=== PATIENT | female | born 1965 | race Two or more races ===

== ENCOUNTER 2020-02-23 06:42 | Outpatient (CLI) | payer OTHER | END 2020-02-23 23:59 | disposition home or self-care (01) | LOC: LAB 06:42 | PROVIDERS: ATTEND Specialist | DX: Z01.812 Encounter for preprocedural laboratory examination (principal); Z11.59 Encounter for screening for other viral diseases | CPT/HCPCS: C9803; U0003 ==

== ENCOUNTER 2020-02-28 05:08 | Inpatient (IN) | payer OTHER ==
[~2020-02-28] VITALS: Ht 152.4 cm; Wt 68.9 kg
[2020-02-28] VITALS (9 sets, daily range): BP systolic 121–159; BP diastolic 55–77
--- NOTE | 2020-02-28 05:22 | NUR ---
MS RN NOTES PATIENT ARRIVED ON FLOOR AT 0520. PATIENT IS ALERT AND ORIENTED X 4. BREATHING EVEN AND UNLABORED ON ROOM AIR. SHOWS NO SIGNS OF ACUTE RESPIRATORY DISTRESS, NO ACUTE PAIN. IV ON RAC 18G ITS CLEAN DRY AND INTACT. SHOWS NO SIGNS OF INFILTRATION, NO REDNESS. SURGERY CONSENT COMPLETED, BELONGINGS CHECKLIST COMPLETED. SAFETY PRECAUTIONS IN PLACE. BED IN LOWEST POSITION, LOCKED, AND CALL LIGHT KEPT WITHIN REACH. WILL CONTINUE TO MONITOR.
--- NOTE | 2020-02-28 05:44 | NUR ---
MS RN NOTES PATIENT PICKED UP FOR SURGERY. LEFT FLOOR AT 0545. WILL ENDORSE TO ONCOMING NURSE.
[2020-02-28] MEDS ORDERED: ANESTHESIA TRAY IN PYXIS 1 EA TRAY MC ONE (05:55)
[2020-02-28] MEDS ORDERED: BUPIVACAINE MPF 0.5% W/EPI INJ 30 ML VIAL ONE (05:55)
[2020-02-28] MEDS ORDERED: BACITRACIN 50000 UNITS/VIAL ONE (05:55)
[2020-02-28 06:01] LABS: BASOPHILS % (AUTO) 0.4 % (0.0-2.0); EOSINOPHILS % (AUTO) 3.2 % (0.0-6.0); HEMATOCRIT 40 % (33-45); LYMPHOCYTES # (AUTO) 1.5 /CMM (0.8-4.8); LYMPHOCYTES % (AUTO) 32.7 % (20.0-44.0); MEAN CORPUSCULAR HGB CONC 32 g/dl (31.0-36.0); MEAN CORPUSCULAR VOLUME 82 fL (82-100); MONOCYTES # (AUTO) 0.4 /CMM (0.1-1.30); MONOCYTES % (AUTO) 9.4 % (2.0-12.0); NEUTROPHILS # (AUTO) 2.5 /CMM (1.8-8.9); NEUTROPHILS % (AUTO) 54.3 % (43.0-81.0); PLATELET COUNT (AUTO) 217 /CMM (150-450); RED BLOOD CELL COUNT(AUTO) 4.89 MIL/uL (4.0-5.2); WHITE BLOOD COUNT (AUTO) 4.6 K/uL (4.3-11.0)
[2020-02-28 06:08] LABS: CALCIUM, SERUM 9.2 mg/dL (8.5-10.1); CREATININE 0.8 mg/dL (0.6-1.3); POTASSIUM 4.1 mmol/L (3.5-5.1)
[2020-02-28] MEDS ORDERED: BUPIVACAINE 0.5 % PF 150 MG/30 ML VIAL ONE (06:22)
[2020-02-28] MEDS ORDERED: HYDROMORPHONE INJ 2 MG/ML DISP.SYRIN ONE (06:22)
[2020-02-28] MEDS ORDERED: MIDAZOLAM HCL 2 MG/2ML VIAL ONE (06:22)
[2020-02-28] MEDS ORDERED: TRANEXAMIC ACID 3,000 MG in SODIUM CHLORIDE IRRIG SOLUTION 70 ML IR ONE (06:30)
--- NOTE | 2020-02-28 07:30 | NUR ---
MS/RN OR Patient in operating room at start of shift.
[2020-02-28] MEDS ORDERED: HYDROMORPHONE 1 MG/1 ML DISP.SYRIN ONE (08:39)
[2020-02-28] MEDS ORDERED: ACETAMINOPHEN 325 MG TABLET PO PRN (09:30)
[2020-02-28] MEDS ORDERED: IV D5/0.45 NACL 1,000 ML IV PRN (09:30)
[2020-02-28] MEDS ORDERED: ZOLPIDEM TARTRATE 5 MG TABLET PO PRN (09:30)
[2020-02-28] MEDS ORDERED: SENNOSIDES 8.6 MG TABLET PO PRN (09:30)
[2020-02-28] MEDS ORDERED: ONDANSETRON HCL/PF 4 MG/2 ML VIAL IV PRN (09:30)
[2020-02-28] MEDS ORDERED: DOCUSATE SODIUM 250 MG CAPSULE PO PRN (09:30)
[2020-02-28] MEDS ORDERED: HYDROCODONE/APAP 5/325MG 1 EACH TABLET PO PRN (09:30)
[2020-02-28] MEDS ORDERED: BISACODYL SUPP (10 MG) 10 MG/SUPP.RECT SUPP.RECT RC PRN ×2 (09:30→10:00)
--- NOTE | 2020-02-28 09:34 | NUR ---
MS/RN S/P Surgery Patient received back to room following left total knee arthroplasty. Vital sings recorded as per hospital protocol, all within normal range for patient, no fevers noted. Two liters oxygen via nasal cannula, saturation 98%. Incentive spirometer given to patient, explained purpose and how to use in Bulgarian, patient stating understanding. Dressing to left knee dry and intact. IV fluids D51/2 NS infusing at 125ml/hr via right hand heplock, no signs of infiltration seen. SCD's in place and in working working order. Post operative orders entered into computer, call light within reach. Bed alarm switched on for safety as patient is fall risk due to anesthesia. Will continue to monitor and ensure safety.
[2020-02-28] MEDS: oxyCODONE IR immediate release 5 MG PO PRN ×2 (09:54→16:21)
[2020-02-28] MEDS ORDERED: MAGNESIUM HYDROXIDE 30 ML UDC PO PRN (10:00)
[2020-02-28] MEDS ORDERED: CLONIDINE HCL 0.1 MG TABLET PO PRN (10:00)
[2020-02-28] MEDS ORDERED: MENTHOL/CETYLPYRD (CEPACOL) 1 LOZ LOZENGE MM PRN (10:00)
[2020-02-28] MEDS ORDERED: NALOXONE HCL 0.4 MG/ML AMPUL IV PRN (10:00)
[2020-02-28] MEDS ORDERED: MAG HYDROX/AL HYDROX/SIMETH 30 ML UDC PO PRN (10:00)
[2020-02-28] MEDS ORDERED: diphenhydrAMINE HCL 25 MG CAPSULE PO PRN (10:00)
[2020-02-28] MEDS: HYDROMORPHONE 1 MG/1 ML DISP.SYRIN IV PRN ×3 (12:01→20:38)
--- NOTE | 2020-02-28 12:53 | NUR ---
MS/RN Post op Remains in stable condition. Vital signs stable, pain well controlled. Voiding using bedpan, will abulate to bathroom once seen by PT. Tolerating diet, no nausea or vomiting.
--- NOTE | 2020-02-28 13:30 | NUR ---
MS/RN S/B Dr Elizabeth Seen by Dr Elizabeth - await pain management consult with Dr Oliva, physical therapy evaluation. DVT score 3, per orders, patient to receive full dose aspirin.
--- NOTE | 2020-02-28 15:18 | NUR ---
MS/RN Ancef Second dose of ancef hung as ordered, no reaction noted.
[2020-02-28] MEDS: ANCEF 1 GM/50 ML D5W IV SCH ×4 (15:23→22:10)
[2020-02-28] MEDS: FAMOTIDINE (20 MG) 20 MG TABLET PO SCH (16:21)
[2020-02-28] MEDS: DOCUSATE SODIUM 100 MG CAPSULE PO SCH (16:21)
--- NOTE | 2020-02-28 18:22 | NUR ---
MS/RN End note Patient remains in stable condition. Post operative vital signs recorded, all within normal range for patient, no fevers noted. Dressing to left knee dry and intact, CPM set up with settings 0-30 degrees, needs to be placed back with patietn this evening. Last pain medication adminstered at 1800 (dilaudid 0.5mg) with good result. No nausea or vomiting, tolerating diet. All questions and concerns addressed, will endorse to warehouse worker 2nd shift.
--- NOTE | 2020-02-28 19:00 | NUR ---
RN priteshsurholger opening notes Received Pt from morning nurse. Pt is laying in bed comfortably watching TV. Pt is alert and orientedX4. Respiration is normal in room air. NO SOB. Pt is exercising incentive spirometer. Pt is verbalized understanding. No S/S of distress noted. IV sites RAC # 18 is clean, intact and SL. Surgical dressing on L knee is clean, intact and dry. Safety precautions is maintained. Bed at low position, brakes locked, side rails upX2 and call light is within reach. Will continue to monitor.
[2020-02-28] MEDS ORDERED: oxyCODONE IR immediate release 5 MG PO ONE (19:18)
--- NOTE | 2020-02-28 20:15 | NUR ---
RN timothy notes Pt is on CPM machine on Left knee. Pt verbalized understanding. Will continue to monitor.
--- NOTE | 2020-02-28 20:39 | NUR ---
RN medsurg notes Pt is complaining of pain on L knee and requesting pain meds. Administered dilaudid 0.5 mg/0.5ml as ordered for pain on L knee 10/10 on pain scale. VS is stable. Safety precautions is maintained. Will continue to monitor.
[2020-02-29] MEDS: HYDROMORPHONE 1 MG/1 ML DISP.SYRIN IV PRN ×5 (00:28→18:03)
--- NOTE | 2020-02-29 00:32 | NUR ---
RN medsurg notes Pt is complaining of pain on L knee and requesting dilaudid. Administered dilaudid 0.5mg/0.5 ml as ordered for L knee pain 9/10 on pain scale per Pt request. BP 133/65, pulse 66. CPM machine is removed per Pt request. Safety precautions is maintained. Will continue to monitor.
--- NOTE | 2020-02-29 06:32 | NUR ---
RN medsurg closing notes Pt is resting in bed comfortably. Pt is alert and orientedX4. Respiration is normal in room air. NO SOB. No S/S of distress noted. Vs is stable. Afebrile. IV sites RAC # 18 is clean, intact and SL. Routine meds were given as ordered including pain management. Surgical dressing on L knee is clean, intact and dry. Kept Pt clean, dry and comfortable. All needs met and attended. Safety precautions is maintained. Bed at low position, brakes locked, side rails upX2 and call light is within reach. Will endorse to morning nurse for JEFFY.
--- NOTE | 2020-02-29 07:30 | NUR ---
MS/RN Opening note Patient received from nightshift. Sleeping soundly at th is time, appears in no distress. Bed in low setting, side rails X3 in upright position, call light within reach. Will continue to monitor and ensure safety.
[2020-02-29] MEDS: oxyCODONE IR immediate release 5 MG PO PRN ×4 (07:59→21:50)
[2020-02-29] MEDS: ASPIRIN EC 325 MG TABLET.DR PO SCH (07:59)
[2020-02-29] MEDS: DOCUSATE SODIUM 100 MG CAPSULE PO SCH ×2 (07:59→16:58)
[2020-02-29] MEDS: FAMOTIDINE (20 MG) 20 MG TABLET PO SCH ×2 (07:59→16:58)
[2020-02-29 08:00] VITALS: BP 151/63
--- NOTE | 2020-02-29 08:10 | NUR ---
MS/RN Pain Complaining of shooting pain to left knee 510. Oxy IR 5mg administered, Will monitor effectiveness.
--- NOTE | 2020-02-29 09:21 | NUR ---
MS/RN Labs H&H .
--- NOTE | 2020-02-29 10:30 | NUR ---
MS/RN PT Seen by PT - able to get out of bed with minimal assist and ambulate to bathroom using walker. Assisted back to bed and CPM positioned. Settings remain at 0-30 degrees.
--- NOTE | 2020-02-29 14:00 | NUR ---
MS/RN S/B Ortho Seen by ortho - first dressing change tomorrow by MD, continue with physical therapy and CPM.
[2020-02-29 16:00] VITALS: BP 146/66
--- NOTE | 2020-02-29 17:00 | NUR ---
MS/RN Pain Complaing of pain to left knee, 11/25. Will administer oxy IR 5mg.
--- NOTE | 2020-02-29 19:00 | NUR ---
RECEIVED THE PATIENT IN HER BED. ALERT AND ORINTATED X4. PLACED THE CPM MACHINE ON HER BED AND EXPLAINED TO HER THE TIME TO DO THIS BEFORE SHE GOES TO SLEEP IS NOW. SHE AGREED.
--- NOTE | 2020-02-29 19:13 | NUR ---
MS/RN End note Patient remains on stable condition. All pain medications administered as ordered. Will endorse to maintenance technician 2nd shift.
[2020-02-29 20:21] VITALS: BP 144/65
[2020-02-29 21:57] VITALS: BP 144/65
[2020-03-01] MEDS: oxyCODONE IR immediate release 5 MG PO PRN ×2 (02:28→16:30)
--- NOTE | 2020-03-01 07:30 | NUR ---
MS TIMMONS NOTES PATIENT IS A/O X 4 AWAKE IN BED WITH NO SIGNS OF DISTRESS IN ROOM AIR. IN R AC INTACT AND PATENT SL. BED IS KEPT ELEVATED ON ONE PILLOW. COMPLAINTS OF NO PAIN AT THIS MOMENT. BED IS IN LOW POSITION WITH SIDE RAILS UP X 2 FOR SAFETY. CALL LIGHT WITHIN REACH. WILL CONTINUE TO MONITOR. Addendum: 03/01/20 at 0747 by ARYAN COLVIN RN LEFT LEG IS KEPT ELEVATED ON ONE PILLOW.
[2020-03-01 07:56] LABS: BASOPHILS # (AUTO) 0.1 /CMM (0.0-0.2); BASOPHILS % (AUTO) 1.1 % (0.0-2.0); EOSINOPHILS % (AUTO) 3.4 % (0.0-6.0); HEMATOCRIT 33 % (33-45); HEMOGLOBIN 10.7 g/dL (11.5-14.8); LYMPHOCYTES # (AUTO) 1.8 /CMM (0.8-4.8); LYMPHOCYTES % (AUTO) 20.7 % (20.0-44.0); MEAN CORPUSCULAR HGB CONC 33 g/dl (31.0-36.0); MEAN CORPUSCULAR VOLUME 82 fL (82-100); MONOCYTES # (AUTO) 0.7 /CMM (0.1-1.30); MONOCYTES % (AUTO) 8.4 % (2.0-12.0); NEUTROPHILS # (AUTO) 5.8 /CMM (1.8-8.9); NEUTROPHILS % (AUTO) 66.4 % (43.0-81.0); PLATELET COUNT (AUTO) 185 /CMM (150-450); RED BLOOD CELL COUNT(AUTO) 3.98 MIL/uL (4.0-5.2); WHITE BLOOD COUNT (AUTO) 8.8 K/uL (4.3-11.0)
[2020-03-01 08:00] VITALS: BP 135/62
[2020-03-01 08:02] LABS: CALCIUM, SERUM 8.5 mg/dL (8.5-10.1); CREATININE 0.8 mg/dL (0.6-1.3); MAGNESIUM 2.2 mg/dL (1.8-2.4); POTASSIUM 3.8 mmol/L (3.5-5.1)
[2020-03-01] MEDS: ASPIRIN EC 325 MG TABLET.DR PO SCH (08:21)
[2020-03-01] MEDS: FAMOTIDINE (20 MG) 20 MG TABLET PO SCH ×2 (08:21→16:32)
[2020-03-01] MEDS: DOCUSATE SODIUM 100 MG CAPSULE PO SCH ×2 (08:21→16:29)
--- NOTE | 2020-03-01 08:45 | NUR ---
IAIN NOTES PATIENT TEMP 101.1 F. GAVE PATIENT TYLENOL FOR FEVER. Addendum: 03/01/20 at 0855 by ARYAN COLVIN RN WILL CONTINUE TO MONITOR TEMPERATURE.
--- NOTE | 2020-03-01 09:40 | NUR ---
RN NOTES RE-ASSESS PATIENT TEMPERATURE 99.1 F.
[2020-03-01 16:00] VITALS: BP 132/72
[2020-03-01] MEDS ORDERED: K PHOS NEUTRAL 250 MG TABLET PO ONE (16:00)
--- NOTE | 2020-03-01 18:43 | NUR ---
MS RN CLOSED NOTES PATIENT IS A/O X 4 AWAKE IN BED RESTING WITH NO SIGNS OF DISTRESS IN ROOM AIR. IV R AC INTACT SL. PAIN MANAGEMENT WAS APPLIED. PATIENT WAS ABLE TO TOLERATE THE CPM FOR 2 HOURS. BED IS IN LOW POSITION WITH SIDE RAILS UP X 2 FOR SAFETY. CALL LIGHT WITHIN REACH. WILL ENDORSE TO THE NEXT SHIFT.
--- NOTE | 2020-03-01 19:17 | NUR ---
RECEIVED MS. TSE IN BED ASLEEP REP EVEN AND UNLABORED LEFT LEG IN GOOD ALINMENT CALL LIGHT WITHIN HER REACH BED ALARM ON.
[2020-03-01 20:00] VITALS: BP 131/65
[2020-03-01 20:32] VITALS: BP 131/65
[2020-03-02] MEDS: oxyCODONE IR immediate release 5 MG PO PRN ×3 (00:05→13:50)
--- NOTE | 2020-03-02 01:00 | NUR ---
MS RN NOTES RECEIVE REPORT FROM HAWK TIMMONS,PATIENT SOUND ASLEEP ON BED.WILL CONTINUE TO MONITOR.
--- NOTE | 2020-03-02 02:00 | NUR ---
MS RN NOTES SOUND ASLEEP,KEPT WARM
--- NOTE | 2020-03-02 06:37 | NUR ---
MS RN NOTES AWAKE,SAYS PAIN IS LESSER DURING THE NIGHT AND ABLE TO SLEEP.CLAIMED SHE MIGHT GO HOME TODAY BUT SHE NEEDS TO DO A LITTLE MORE STEPSIN NO ACUTE DISTRESS.
--- NOTE | 2020-03-02 06:45 | NUR ---
MS RN NOTES DR DIEHL JUST CALLED,PAIN MANAGEMENT DOCTOR GIVE UPDATE REGARDING PATIENT STATUS
--- NOTE | 2020-03-02 07:30 | NUR ---
MS/RN NOTE RECEIVED THE PATIENT IN BED. THE PATIENT ALERT AND ORIENTED X4. NOTED LEFT LEFT WITH MARINO WRAP DRESSING. NO BLEEDING OR SWELLING NOTED. PEDAL PULSES PRESENT. DENIES PAIN. IN ROOM AIR AND DENIES SOB. RESPIRATION REGULAR AND UNLABORED. THE PATIENT IN NON APPARENT DISTRESS. RAC G 20 PATENT AND SALINE LOCKED. BED LOW AND LOCKED. SIDE RAILS UP X3. CALL LIGHT WITHIN REACH. WILL CONTINUE TO MONITOR.
[2020-03-02 08:00] VITALS: BP 130/63
[2020-03-02 08:18] LABS: BASOPHILS # (AUTO) 0.1 /CMM (0.0-0.2); BASOPHILS % (AUTO) 0.9 % (0.0-2.0); EOSINOPHILS % (AUTO) 3.7 % (0.0-6.0); HEMATOCRIT 31 % (33-45); HEMOGLOBIN 10.1 g/dL (11.5-14.8); LYMPHOCYTES # (AUTO) 1.3 /CMM (0.8-4.8); LYMPHOCYTES % (AUTO) 20.3 % (20.0-44.0); MEAN CORPUSCULAR HGB CONC 33 g/dl (31.0-36.0); MEAN CORPUSCULAR VOLUME 82 fL (82-100); MONOCYTES # (AUTO) 0.6 /CMM (0.1-1.30); MONOCYTES % (AUTO) 8.8 % (2.0-12.0); NEUTROPHILS # (AUTO) 4.3 /CMM (1.8-8.9); NEUTROPHILS % (AUTO) 66.3 % (43.0-81.0); PLATELET COUNT (AUTO) 183 /CMM (150-450); RED BLOOD CELL COUNT(AUTO) 3.78 MIL/uL (4.0-5.2); WHITE BLOOD COUNT (AUTO) 6.5 K/uL (4.3-11.0)
[2020-03-02] MEDS: ASPIRIN EC 325 MG TABLET.DR PO SCH (08:31)
[2020-03-02] MEDS: DOCUSATE SODIUM 100 MG CAPSULE PO SCH ×2 (08:32→16:34)
[2020-03-02] MEDS: FAMOTIDINE (20 MG) 20 MG TABLET PO SCH ×2 (08:32→16:27)
[2020-03-02 09:02] LABS: CALCIUM, SERUM 8.6 mg/dL (8.5-10.1); CREATININE 0.9 mg/dL (0.6-1.3); MAGNESIUM 2.3 mg/dL (1.8-2.4); PHOSPHORUS 2.3 mg/dL (2.5-4.9); POTASSIUM 3.6 mmol/L (3.5-5.1)
[2020-03-02] MEDS ORDERED: ASPI-869 PO (14:26)
[2020-03-02] MEDS ORDERED: FAMO20TA80 PO (14:26)
[2020-03-02] MEDS ORDERED: K PHOS NEUTRAL 250 MG TABLET PO ONE (16:00)
[2020-03-02 16:33] VITALS: BP 139/84
--- NOTE | 2020-03-02 16:45 | NUR ---
MS/RN NOTE THE PATIENT IS ALERT AND ORIENTED X4. IN ROOM AIR AND SATURATION IS AT 97%. DENIES SOB. RESPIRATION REGULAR AND UNLABORED. DENIES PAIN. THE PATIENT IN NO APPARENT DISTRESS. REMOVED RAC G 20 IV LINE WITH MINIMAL BLEEDING. COVERED WITH 2X2 DRESSING AND ASKED THE PATIENT TO PUT PRESSURE ON IT FOR 1-2 MIN. LEFT KNEE DRESSING IN PLACE. PEDAL PULSES PRESENT. DISCHARGE EDUCATION PROVIDED TO THE PATIENT AND SHE VERBALIZED UNDERSTANDING. PRESCRIPTION HANDED TO THE PATIENT AND THE COPY SAVED IN THE CHART. THE PATIENT`S DAUGHTER IS MADE AWARE ABOUT THE DISCHARGE. THE PATIENT GOT PICKED UP VIA AMBULANCE. LEFT THE HOSPITAL IN STABLE CONDITION.
== END 2020-03-02 16:45 | disposition home health service (06) | DRG 470 ==
LOC: DS 05:08 → MED 05:17
PROVIDERS: ADMIT Nurse Practitioner Acute Care; ATTEND Student in an Organized Health Care Education/Training Program
PROC: 0SRD0J9 Replacement of Left Knee Joint with Synthetic Substitute, Cemented, Open Approach (ICD-10-PCS; principal; 2020-02-28)
DX: M17.12 Unilateral primary osteoarthritis, left knee (principal); E66.9 Obesity, unspecified; Z68.29 Body mass index [BMI] 29.0-29.9, adult
CPT/HCPCS: 36415; 80048-TC; 83735-TC; 84100-TC; 85025-TC; 85027-TC; 86850-TC; 87081-TC; 88305-TC; 88311-TC; 97110-TC; 97116-TC; 97530-TC; 97760-TC; A4217; C1713; C1776; G0378; J0690; J1100; J1170; J1885; J2250; J2405; J2704; J3490; J7060; L1830